=== PATIENT | male | born 1970 | race Caucasian/White ===

== ENCOUNTER 2021-06-20 01:45 | Emergency (ER) | payer OTHER, SELFPAY ==
[2021-06-20 01:54] VITALS: BP 124/76; PULSE 66; RESP 18; TEMP 36.3; O2SAT 97; BMI 27.2
[2021-06-20 01:58] VITALS: O2SAT 97
--- NOTE | 2021-06-20 02:00 | XRR_ITS ---
PROCEDURE INFORMATION: Exam: XR Chest Exam date and time: 06/20/2021 2:00 AM Age: 50 years old Clinical indication: Patient HX: Cough. Tested covid positive last Friday. ; Additional info: Covid, cough TECHNIQUE: Imaging protocol: XR of the chest. Views: 1 view. COMPARISON: CT Cervical Spine wo* [id number] 2018-01-13 06:12 FINDINGS: Lungs: No focal airspace consolidation. Pleural spaces: Unremarkable. No pleural effusion. No pneumothorax. Heart/Mediastinum: Unremarkable. No cardiomegaly. Bones/joints: Unremarkable. XR/XR chest 1V portable [id number] IMPRESSION: No focal airspace consolidation.
--- NOTE | 2021-06-20 02:02 | ED_ITS ---
HPI - COVID General: Chief Complaint: COVID symptoms Stated Complaint: Covid Symptoms Time Seen by Provider: 06/20/21 02:01 Triage information: Has fever, cough or shortness of breath . Exposure to COVID + person last 14 days History of Present Illness: Patient comes in [facility] with complaints of sore throat, nasal congestion, and COVID-19 since Friday. Patient denies any chronic medical problems. Patient appears healthy. Patient appears mildly ill but not toxic. Patient appears in mild to moderate pain. COVID 19 common symptoms: positive throat pain COVID Results: No Data to Display Review of Systems ENMT: Reports: throat pain Physical Exam Const: COMMON NORMALS: average body habitus and alert HENMT: THROAT: posterior oropharynx abnormal erythema Eye: COMMON NORMALS: EOMs intact bilaterally Resp: COMMON NORMALS: normal respiratory effort and clear to auscultation bilaterally AUSCULTATION: clear to auscultation bilaterally Cardio: COMMON NORMALS: regular rate and regular rhythm RATE: regular rate RHYTHM: regular rhythm Extremity: COMMON NORMALS: normal to inspection Neuro: SENSORIUM/ORIENTATION: Yes alert Psych: COMMON NORMALS: cooperative Course Vital Signs: Vital signs: Vital Signs Temperature 97.4 F L 06/20/21 01:54 Pulse Rate 66 06/20/21 01:54 Respiratory Rate 18 06/20/21 01:54 Blood Pressure 124/76 06/20/21 01:54 Pulse Oximetry 97 06/20/21 01:58 [facility] - COVID Medical Decision Making 50-year-old male patient comes in [facility] with complaints of sore throat, nasal congestion, and cough. Patient tested positive for COVID-19 on Friday. Patient stated he started feeling ill Friday night. On exam lungs are clear to auscultation. Skin is warm and dry. Vital signs are normal. Posterior pharynx is erythematous, and patient has significant amount of nasal discharge. Differential diagnosis includes rhinosinusitis, pharyngitis, viral syndrome, COVID-19, pneumonia. Chest x-ray was normal. Believe the patient probably has a pharyngitis and rhinosinusitis secondary to his COVID-19 infection. Will give patient a 10 mg dose [facility] the sore throat and symptoms and continue the dexamethasone 4 mg for next 4 days. Patient was given 1 dose of hydrocodone 5 with 325 of acetaminophen to help with the sore throat. Patient was written prescriptions for home encourage drink plenty of fluids monitor for worsening symptoms. Patient reported understanding. Differential Diagnosis Likely COVID 19, influenza, other viral infection and pneumonia Lab Data No Data to Display Discharge Plan Discharge Patient Disposition: Home Clinical Impression: COVID-19 Pharyngitis Qualifiers: Pharyngitis/tonsillitis etiology: other specified organisms Qualified Code(s): J02.8 - Acute pharyngitis due to other specified organisms Condition: Stable Prescriptions: New dexamethasone 4 mg tablet 4 mg PO DAILY Qty: 4 0RF hydrocodone-acetaminophen 5-325 mg tablet 1 tab PO Q8H PRN (Reason: pain (scale score 7-10)) Qty: 7 0RF Discharge Orders: Discharge ED (Routine); Ordered 06/20/21 Ordered By: Joesph Rossi Referrals: Rehan Martinez MD [Physician] - Discharge Diet: Usual diet Discharge Activity: Increase activity as tolerated Patient Instructions: Viral Syndrome (ED), Opioid Safety Activity Restrictions/Additional Instructions: Home and rest. Drink lots of water. Use acetaminophen and ibuprofen for the most discomfort. Use hydrocodone for severe pain. Take steroid daily for the next 4 days. Follow-up with primary care as needed. Return to the ER for chest pain, worsening shortness of breath, or new concerns. Coding Level of Care Code ED Product Line Manager for Eliazar Jimenez History Problem Focused Medical Decision Making Low Complexity Time Spent (min) 20
[2021-06-20] MEDS: HYDROcodone-acetaminophen 5-325 mg Tablet 1 TAB PO (02:19)
[2021-06-20] MEDS: dexamethasone 4 mg Tablet 10 MG PO (02:19)
== END 2021-06-20 02:20 | disposition home or self-care (01) ==
PROVIDERS: Emergency Provider Nurse Practitioner Family
DX: U07.1 COVID-19 (principal); J02.8 Acute pharyngitis due to other specified organisms
CPT/HCPCS: 71045; 99283; J8540